=== PATIENT | male | born 1990 | race Caucasian/White ===

== ENCOUNTER 2020-05-29 20:51 | Emergency (ER) | payer SELFPAY ==
[2020-05-29 20:53] VITALS: BP 140/90; PULSE 102; RESP 16; TEMP 37; O2SAT 97; BMI 22.0
--- NOTE | 2020-05-29 21:18 | XR_ITS ---
PROCEDURE: XR CHEST PORTABLE CLINICAL HISTORY: productive cough COMPARISON: No exams were available for comparison FINDINGS: The cardiomediastinal silhouette and pulmonary vascularity are within normal limits. There is a patchy ill-defined pneumonic infiltrate right middle lobe causing partial silhouetting of the right heart border. Otherwise the right lung field is clear and the left lung field is clear. There is no pleural fluid. IMPRESSION: Focal right middle lobe pneumonia Dictated by: Dr. Efren Fong MD 05/30/2020 08:47 Dr. Efren Fong MD in [place] 05/30/2020 08:47
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
[2020-05-29 22:11] VITALS: BP 127/79; PULSE 105; RESP 16; TEMP 37; O2SAT 95
== END 2020-05-29 22:15 ==
PROVIDERS: Emergency Provider Emergency Medicine
DX: J18.9 Pneumonia, unspecified organism (principal)
CPT/HCPCS: 71045; 99283

== ENCOUNTER 2021-01-05 19:31 | Emergency (ER) | payer SELFPAY ==
[2021-01-05 19:21] VITALS: BP 141/70; PULSE 73; RESP 15; TEMP 36.7; O2SAT 95; BMI 27.3
[2021-01-05 19:54] LABS: Benzodiazepines Screen,Urine Positive ng/ml (<200)
[2021-01-05 19:55] LABS: Barbiturates Screen,Urine Negative ng/ml (<200); Cannabinoid Screen,Urine Negative ng/ml (<50)
[2021-01-05 19:56] LABS: Cocaine Screen,Urine Negative ng/ml (<300)
[2021-01-05 19:57] LABS: Methadone Screen,Urine Negative ng/ml (<300); Opiate Screen,Urine Negative ng/ml (<300)
[2021-01-05 19:58] LABS: Phencyclidine Screen,Urine Negative ng/ml (<25)
[2021-01-05 20:30] VITALS: BP 129/71; PULSE 90; RESP 14; TEMP 37.3; O2SAT 97
--- NOTE | 2021-01-05 20:47 | HMH.EDOD ---
ED Disposition Clinical Impression: Poisoning by opiate or related narcotic, Amphetamine abuse CAP (community acquired pneumonia) Qualifiers: Laterality: right Lung location: lower lobe of lung Qualified Code(s): J18.9 - Pneumonia, unspecified organism Disposition: Home, Self-Care Condition on Discharge: Fair Instructions: DI for Drug Overdose in Adults Additional Instructions: pt asked to see rehab and pcp for follow up Prescriptions: clindamycin HCL [Clindamycin HCl] 300 mg PO TID #21 cap Transmission Status: Pending to [facility] levoFLOXacin [Levaquin 500mg tab] 500 mg PO DAILY #7 tab Transmission Status: Pending to [facility] Referrals: Provider,Referral, [Primary Care Provider] - - Critical Care Critical Care Time: No Attestation: On 01/05/21, the high probability of a clinically significant, sudden or life threatening deterioration of the following system(s) required my full and direct attention, intervention and personal management. The time I documented below is in addition to time spent performing reported procedures but includes the following listed in this critical care notation. Medical Decision Making - Medical Records Medical records reviewed: Yes: I reviewed the patient's medical records. - Sebastián Inquiry Pt receiving controlled substance: No Vital Signs: 01/05/21 19:21 01/05/21 20:30 01/05/21 21:30 Temperature 98.1 F 99.1 F Temperature Source Oral Oral Pulse Rate 90 73 Pulse Rate [Right Brachial] 73 Respiratory Rate 15 14 12 Blood Pressure 129/71 141/79 H Blood Pressure [Right Arm] 141/70 H Blood Pressure Mean Blood Pressure Mean [Right Arm] 93 Blood Pressure Source Automatic Cuff Blood Pressure Source [Right Arm] Automatic Cuff Blood Pressure Position Supine Blood Pressure Position [Right Arm] Sitting 02 Sat by Pulse Oximetry 95 97 95 Oxygen Delivery Method Room Air Room Air 01/05/21 22:30 01/05/21 23:30 01/06/21 00:12 Temperature Temperature Source Pulse Rate 70 65 103 H Pulse Rate [Right Brachial] Respiratory Rate 14 16 Blood Pressure 151/70 H 138/59 L 161/81 H Blood Pressure [Right Arm] Blood Pressure Mean 98 Blood Pressure Mean [Right Arm] Blood Pressure Source Automatic Cuff Automatic Cuff Blood Pressure Source [Right Arm] Blood Pressure Position Sitting Supine Blood Pressure Position [Right Arm] 02 Sat by Pulse Oximetry 95 97 95 Oxygen Delivery Method Room Air 01/06/21 00:15 01/06/21 00:30 01/06/21 00:45 Temperature Temperature Source Pulse Rate 108 H 105 H 107 H Pulse Rate [Right Brachial] Respiratory Rate Blood Pressure 167/82 H Blood Pressure [Right Arm] Blood Pressure Mean 107 Blood Pressure Mean [Right Arm] Blood Pressure Source Blood Pressure Source [Right Arm] Blood Pressure Position Blood Pressure Position [Right Arm] 02 Sat by Pulse Oximetry 94 L 93 L 95 Oxygen Delivery Method 01/06/21 01:00 01/06/21 01:15 01/06/21 01:30 Temperature Temperature Source Pulse Rate 108 H 105 H 100 H Pulse Rate [Right Brachial] Respiratory Rate Blood Pressure 161/82 H 126/65 Blood Pressure [Right Arm] Blood Pressure Mean 98 85 Blood Pressure Mean [Right Arm] Blood Pressure Source Blood Pressure Source [Right Arm] Blood Pressure Position Blood Pressure Position [Right Arm] 02 Sat by Pulse Oximetry 96 95 97 Oxygen Delivery Method 01/06/21 02:01 01/06/21 02:30 01/06/21 03:00 Temperature Temperature Source Pulse Rate 107 H 100 H Pulse Rate [Right Brachial] Respiratory Rate Blood Pressure 140/73 153/80 H 139/74 Blood Pressure [Right Arm] Blood Pressure Mean 88 97 105 Blood Pressure Mean [Right Arm] Blood Pressure Source Blood Pressure Source [Right Arm] Blood Pressure Position Blood Pressure Position [Right Arm] 02 Sat by Pulse Oximetry 95 94 L Oxygen Delivery Method
--- NOTE | 2021-01-05 20:48 | XR_ITS ---
PROCEDURE INFORMATION: Exam: XR Chest Exam date and time: 01/05/2021 8:48 PM Age: 30 years old Clinical indication: Other: Vomiting, SOB, found unconscious from overdose; Patient HX: Found in yard from overdose, vomiting, SOB TECHNIQUE: Imaging protocol: XR of the chest. Views: 1 view. COMPARISON: CR XR CHEST PORTABLE 05/29/2020 10:03 PM FINDINGS: Lungs: There are ill-defined opacities in the right lung base. The left lung is clear. Pleural spaces: Unremarkable. No pleural effusion. No pneumothorax. Heart/Mediastinum: Unremarkable. No cardiomegaly. Bones/joints: Unremarkable. No acute displaced fracture. IMPRESSION: Ill-defined opacities in the right lung base could be secondary to aspiration pneumonitis.
[2021-01-05 21:23] LABS: Basophils % 0.3 % (0.1-2.0); Eosinophils # 0.1 K/mm3 (0.0-0.4); Eosinophils % 0.8 % (0.1-12.0); Hematocrit 46.4 % (42.0-52.0); Hemoglobin 15.4 g/dL (14.1-18.0); Lymphocytes # 0.8 K/mm3 (0.7-4.5); Lymphocytes % 7.8 % (10-50); Mean Corpuscular HGB Conc 33.1 g/dL (31.8-35.4); Mean Corpuscular Hemoglobin 28.5 pg (27.0-31.2); Mean Corpuscular Volume 86.1 fl (80-94); Mean Platelet Volume 8.3 fl (7.4-10.4); Monocytes # 0.2 K/mm3 (0.1-1.0); Monocytes % 1.7 % (1.7-9.3); Neutrophils # 9.6 K/mm3 (1.8-7.8); Neutrophils % 89.3 % (37.0-80.0); Platelet Count 482 K/mm3 (142-424); Red Blood Count 5.39 M/mm3 (4.60-6.20); Red Cell Distribution Width 12.7 % (11.5-17.5); White Blood Count 10.7 K/mm3 (4.8-10.8)
[2021-01-05 21:29] LABS: MANUAL DIFFERENTIAL MANUAL DIFFERENTIAL (MANUAL DIFF)
[2021-01-05 21:30] VITALS: BP 141/79; PULSE 73; RESP 12; O2SAT 95
[2021-01-05 21:45] LABS: Lymphocytes % 10 % (10-50); Monocytes % 3 % (2-9); Neutrophils % 85 % (42-76); Platelet Estimate Normal; RBC Morphology Normal; Total Cells Counted 100
[2021-01-05 21:54] LABS: Erythrocyte Sedimentation Rate 16 mm/hr (0-15)
[2021-01-05 22:03] LABS: Alanine Aminotransferase 19 U/L (12-78); Albumin Level 4.6 g/dl (3.5-5.0); Albumin/Globulin Ratio 1.4 (1.1-1.8); Alkaline Phosphatase 95 U/L (38-126); Aspartate Amino Transferase 43 U/L (17-59); Bilirubin,Total 0.6 mg/dl (0.2-1.3); Blood Urea Nitrogen 11 mg/dl (9-20); Calcium 9.8 mg/dl (8.4-10.2); Carbon Dioxide 27 mmol/L (22.0-30.0); Chloride 98 mmol/L (98-107); Creatinine Clearance Estimated 204 mL/min (50-200); Estimated Glomerular Filt Rate 156 ml/min (>60); GFR (African American) 189 ML/MIN (>60); Globulin 3.3 g/dL (1.3-3.2); Glucose 95 mg/dl (74-100); Sodium 135 mmol/L (136-145); Total Protein,Serum 7.9 g/dl (6.3-8.2)
[2021-01-05 22:08] LABS: C-Reactive Protein 21.3 mg/L (0-4)
[2021-01-05 22:22] LABS: Procalcitonin 0.108 ng/mL (0.0-2.0); Troponin I < 0.01 ng/ml (0.00-0.034)
[2021-01-05 22:30] VITALS: BP 151/70; PULSE 70; RESP 14; O2SAT 95
[2021-01-05 23:30] VITALS: BP 138/59; PULSE 65; RESP 16; O2SAT 97
[2021-01-06] VITALS (14 sets, daily range): BP systolic 126–167; BP diastolic 65–94; PULSE 99–110; RESP 16; TEMP 36.6; O2SAT 93–98
[2021-01-11 19:07] LABS: Amphetamine Positive (.); Amphetamines Positive (.); Methamphetamine Positive (.)
[2021-01-12 12:34] LABS: Amphetamine (GC/MS) >3000 ng/mL (Cutoff=500); Methamphetamine (GC/MS) >3000 ng/mL (Cutoff=500)
== END 2021-01-06 05:07 | disposition home or self-care (01) ==
PROVIDERS: Emergency Medicine; Emergency Provider Emergency Medicine
DX: T40.1X1A Poisoning by heroin, accidental (unintentional), initial encounter (principal); R55 Syncope and collapse; Y92.89 Other specified places as the place of occurrence of the external cause; J18.9 Pneumonia, unspecified organism; F15.10 Other stimulant abuse, uncomplicated
CPT/HCPCS: 71045; 80053; 80305; 80324; 83605; 84145; 84484; 85007; 85025; 85651; 86140; 87040; 96372; 99283

== ENCOUNTER 2021-12-27 23:09 | Emergency (ER) | payer MEDICAID, SELFPAY ==
[2021-12-27 23:20] VITALS: BP 122/72; PULSE 103; RESP 18; TEMP 36.9; O2SAT 98; BMI 27.3
--- NOTE | 2021-12-28 00:21 | HMH.EDMCLR ---
ED Disposition Clinical Impression: Medical clearance for incarceration Cellulitis Qualifiers: Site of cellulitis: trunk Site of cellulitis of trunk: back Qualified Code(s): L03.312 - Cellulitis of back [any part except buttock] Disposition: Home, Self-Care Condition on Discharge: Good Instructions: DI for Substance Use Disorder, DI for Methicillin-Resistant Staph Infection (MRSA) Additional Instructions: keel clean and covered and use meds and see pcp for follow up Prescriptions: clindamycin HCL [Clindamycin HCl] 300 mg PO TID #30 cap Transmission Status: Pending to [facility] Minocycline HCl [Minocycline HCl 100mg Tab*] 100 mg PO BID #20 tab Transmission Status: Pending to [facility] Referrals: Provider,Referral, MD [Primary Care Provider] - - Critical Care Critical Care Time: No Attestation: On 12/27/21, the high probability of a clinically significant, sudden or life threatening deterioration of the following system(s) required my full and direct attention, intervention and personal management. The time I documented below is in addition to time spent performing reported procedures but includes the following listed in this critical care notation. Medical Decision Making - Medical Records Medical records reviewed: Yes: I reviewed the patient's medical records. - Sebastián Inquiry Pt receiving controlled substance: No Vital Signs: 12/27/21 23:20 Temperature 98.4 F Temperature Source Oral Pulse Rate [Left Brachial] 103 H Respiratory Rate 18 Blood Pressure [Left Arm] 122/72 Blood Pressure Mean [Left Arm] 88 Blood Pressure Source [Left Arm] Automatic Cuff Blood Pressure Position [Left Arm] Sitting 02 Sat by Pulse Oximetry 98 Oxygen Delivery Method Room Air Orders (Tests/Meds): ED MEDICATIONS Generic Name Dose Route Start Last Admin Trade Name Freq PRN Reason Stop Dose Admin Mupirocin 1 gm 12/28/21 00:15 12/28/21 00:17 Mupirocin 2% Ointment 22gm Tube TP 01/27/22 00:14 1 applic BID KIRILL Administration Discontinued Medications Generic Name Dose Route Start Last Admin Trade Name Freq PRN Reason Stop Dose Admin Clindamycin HCl 300 mg 12/28/21 00:11 12/28/21 00:17 Clindamycin 150mg Capsule PO 12/28/21 00:12 300 mg ONCE ONE Administration ORDERS Category Date Time Status Wound Culture and Gram Stain Stat Micro 12/28/21 00:11 Ordered Medical Decision Narrative: stable for detention at this time - has mrsa cellulitis - will give treatment at this time Medical Clearance HPI - General Chief complaint: Medical Clearance Stated complaint: Medical Clearance Time Seen by Provider: 12/28/21 00:21 Mode of Arrival: Ambulatory Source of Information: Patient, Medical Record Limitations: No Limitations Description of Symptoms (Recalled from ER Triage Doc. by RN): patient brought in by police for medical clearance. Patient admits to heroin use at 5 pm. Report a red raised area to right lower back x 1 week. Return draining at interval. - History of Present Illness HPI Narrative: has area on back consistent with mrsa- no fever or rash - MD complaint: medical clearance requested Onset (ago): day(s) Place: home Traumatic Symptoms: denies traumatic injury Associated Symptoms: other (rash on back ) Treatments Prior to Arrival: none Home medications: Previous Rx's Medication Instructions Recorded Minocycline HCl [Minocycline HCl 100 mg PO BID #20 tab 12/28/21 100mg Tab*] clindamycin HCL [Clindamycin HCl] 300 mg PO TID #30 cap 12/28/21 Allergies/Adverse reactions: Allergies Allergy/AdvReac Type Severity Reaction Status Date / Time No Known Allergies Allergy Verified 05/29/20 22:06 [facility] History - Hepatitis A Screen Attestation statement:: This patient has been screened for Hepatitis A risk factors. I have reviewed the patient's past medical history: Yes ROS Obtained: Yes All systems reviewed & no additional complaints
[2021-12-28 00:32] VITALS: BP 120/68; PULSE 98; RESP 18; TEMP 36.8; O2SAT 99
== END 2021-12-28 00:34 | disposition home or self-care (01) ==
PROVIDERS: Emergency Provider Emergency Medicine
DX: L03.312 Cellulitis of back [any part except buttock and flank] (principal); F11.10 Opioid abuse, uncomplicated
CPT/HCPCS: 87070; 87077; 87186; 87205; 99283

== ENCOUNTER 2022-01-13 23:22 | Emergency (ER) | payer MEDICAID, SELFPAY ==
[2022-01-13 23:23] VITALS: BP 142/98; PULSE 121; RESP 22; TEMP 37.5; O2SAT 99; BMI 22.1
[2022-01-14] VITALS (11 sets, daily range): BP systolic 104–124; BP diastolic 50–69; PULSE 80–97; RESP 16–18; TEMP 36.7; O2SAT 94–99
[2022-01-14 00:05] LABS: Basophils # 0.4 K/mm3 (0-0.2); Basophils % 3.2 % (0.1-2.0); Eosinophils # 0.3 K/mm3 (0.0-0.4); Eosinophils % 2.8 % (0.1-12.0); Hematocrit 39.8 % (42.0-52.0); Hemoglobin 13.4 g/dL (14.1-18.0); Lymphocytes # 3.1 K/mm3 (0.7-4.5); Lymphocytes % 28.5 % (10-50); Mean Corpuscular HGB Conc 33.7 g/dL (31.8-35.4); Mean Corpuscular Hemoglobin 28.5 pg (27.0-31.2); Mean Corpuscular Volume 84.7 fl (80-94); Mean Platelet Volume 7.5 fl (7.4-10.4); Monocytes # 0.8 K/mm3 (0.1-1.0); Monocytes % 7.2 % (1.7-9.3); Neutrophils # 6.3 K/mm3 (1.8-7.8); Neutrophils % 58.3 % (37.0-80.0); Platelet Count 406 K/mm3 (142-424); Red Cell Distribution Width 13.8 % (11.5-17.5); White Blood Count 10.9 K/mm3 (4.8-10.8)
[2022-01-14 00:11] LABS: Alanine Aminotransferase 35 U/L (12-78); Albumin Level 4.1 g/dl (3.5-5.0); Albumin/Globulin Ratio 1.6 (1.1-1.8); Alkaline Phosphatase 88 U/L (38-126); Aspartate Amino Transferase 47 U/L (17-59); Bilirubin,Total 0.4 mg/dl (0.2-1.3); Blood Urea Nitrogen 19 mg/dl (9-20); Carbon Dioxide 27 mmol/L (22.0-30.0); Chloride 104 mmol/L (98-107); Creatinine Clearance Estimated 126 mL/min (50-200); Estimated Glomerular Filt Rate 111 ml/min (>60); GFR (African American) 135 ML/MIN (>60); Globulin 2.5 g/dL (1.3-3.2); Glucose 102 mg/dl (74-100); Sodium 138 mmol/L (136-145); Total Protein,Serum 6.6 g/dl (6.3-8.2)
[2022-01-14 00:15] LABS: C-Reactive Protein 32.2 mg/L (0-4)
[2022-01-14 00:27] LABS: Lactic Acid 1.1 mmol/L (0.7-2.1)
[2022-01-14 00:27] LABS: Microscopic, Urine URINE MICROSCOPIC (MICROSCOPIC)
[2022-01-14 00:29] LABS: Procalcitonin 0.275 ng/mL (0.0-2.0)
[2022-01-14 00:35] LABS: Appearance,Urine CLEAR (Clear); Bilirubin,Urine Negative (Negative); Blood, Urine Negative (Negative); Color,Urine YELLOW (Yellow); Glucose,Urine (UA) Negative (Negative); Ketones,Urine Negative (Negative); Leukocyte Esterase,Urine Negative (Negative); Nitrate,Urine Negative (Negative); PH,Urine 5.5 (5.0-8.5); Protein,Urine Negative (Negative); Specific Gravity, Urine >= 1.030 (1.005-1.030); Urobilinogen,Urine 0.2 EU/dl (0.2)
[2022-01-14 00:36] LABS: Erythrocyte Sedimentation Rate 18 mm/hr (0-15)
[2022-01-14 00:43] LABS: Bacteria,Urine Trace /lpf; Squamous Epithelial Cell,Urine Occasional #/hpf (0-5)
[2022-01-14 00:46] LABS: Benzodiazepines Screen,Urine Negative ng/ml (<200)
[2022-01-14 00:47] LABS: Barbiturates Screen,Urine Negative ng/ml (<200)
[2022-01-14 00:48] LABS: Cannabinoid Screen,Urine Negative ng/ml (<50); Cocaine Screen,Urine Negative ng/ml (<300)
[2022-01-14 00:49] LABS: Methadone Screen,Urine Negative ng/ml (<300)
[2022-01-14 00:50] LABS: Opiate Screen,Urine Negative ng/ml (<300); Phencyclidine Screen,Urine Negative ng/ml (<25)
--- NOTE | 2022-01-14 01:36 | HMH.EDANX ---
ED Disposition Clinical Impression: Amphetamine abuse Disposition: Home, Self-Care Condition on Discharge: Good Instructions: DI for Substance Use Disorder Additional Instructions: call pcp for follow up and consider rehab Referrals: Provider,Referral, [Primary Care Provider] - - Critical Care Critical Care Time: No Attestation: On 01/13/22, the high probability of a clinically significant, sudden or life threatening deterioration of the following system(s) required my full and direct attention, intervention and personal management. The time I documented below is in addition to time spent performing reported procedures but includes the following listed in this critical care notation. Medical Decision Making - Medical Records Medical records reviewed: Yes: I reviewed the patient's medical records. - Sebastián Inquiry Pt receiving controlled substance: No Vital Signs: 01/13/22 23:23 01/14/22 00:54 01/14/22 01:00 Temperature 99.5 F Temperature Source Oral Pulse Rate 97 H 96 H Pulse Rate [Right] 121 H Respiratory Rate 22 Blood Pressure 104/50 L 112/59 L Blood Pressure [Right Arm] 142/98 H Blood Pressure Mean 63 71 Blood Pressure Mean [Right Arm] 112 Blood Pressure Source Blood Pressure Position 02 Sat by Pulse Oximetry 99 94 L 95 Oxygen Delivery Method 01/14/22 01:30 01/14/22 02:00 01/14/22 02:30 Temperature Temperature Source Pulse Rate 90 89 87 Pulse Rate [Right] Respiratory Rate 16 16 Blood Pressure 124/57 L 117/62 111/61 Blood Pressure [Right Arm] Blood Pressure Mean 72 82 74 Blood Pressure Mean [Right Arm] Blood Pressure Source Blood Pressure Position 02 Sat by Pulse Oximetry 96 98 98 Oxygen Delivery Method 01/14/22 03:00 01/14/22 03:30 01/14/22 04:00 Temperature Temperature Source Pulse Rate 84 90 85 Pulse Rate [Right] Respiratory Rate Blood Pressure 108/63 L 113/63 115/69 Blood Pressure [Right Arm] Blood Pressure Mean 82 78 79 Blood Pressure Mean [Right Arm] Blood Pressure Source Blood Pressure Position 02 Sat by Pulse Oximetry 98 97 98 Oxygen Delivery Method 01/14/22 04:30 01/14/22 05:00 01/14/22 06:45 Temperature 98.1 F Temperature Source Oral Pulse Rate 82 80 80 Pulse Rate [Right] Respiratory Rate 18 Blood Pressure 109/56 L 104/63 L 104/63 L Blood Pressure [Right Arm] Blood Pressure Mean 73 74 Blood Pressure Mean [Right Arm] Blood Pressure Source Automatic Cuff Blood Pressure Position Sitting 02 Sat by Pulse Oximetry 99 99 Oxygen Delivery Method Room Air - Lab Data Lab results reviewed: Yes: I reviewed the patient's lab results. Lab Results 01/13/22 23:55: WBC 10.9 H, RBC 4.70, Hgb 13.4 L, Hct 39.8 L, MCV 84.7, MCH 28.5, MCHC 33.7, RDW 13.8, Plt Count 406, MPV 7.5, Neut % (Auto) 58.3, Lymph % (Auto) 28.5, Barren % (Auto) 7.2, Eos % (Auto) 2.8, Baso % (Auto) 3.2 H, Neut # (Auto) 6.3, Lymph # (Auto) 3.1, Barren # (Auto) 0.8, Eos # (Auto) 0.3, Baso # (Auto) 0.4 H, ESR 18 H 01/13/22 23:55: Sodium 138, Potassium 4.0, Chloride 104, Carbon Dioxide 27, Anion Gap 11.0, BUN 19, Creatinine 0.80, Estimated Creat Clear 126, Estimated GFR 111, Est GFR ( Amer) 135, Glucose 102 H, Calcium 9.0, Total Bilirubin 0.4, AST 47, ALT 35, Alkaline Phosphatase 88, C-Reactive Protein 32.2 H, Total Protein 6.6, Albumin 4.1, Globulin 2.5, Albumin/Globulin Ratio 1.6, Procalcitonin 0.275 01/14/22 00:00: Lactate 1.1 01/14/22 00:22: Urine Color Yellow, Urine Appearance Clear, Urine pH 5.5, Ur Specific [place] >= 1.030, Urine Protein Negative, Urine Glucose (UA) Negative, Urine Ketones Negative, Urine Blood Negative, Urine Nitrate Negative, Urine Bilirubin Negative, Urine Urobilinogen 0.2, Ur Leukocyte Esterase Negative, Urine RBC None, Urine WBC 3-5, Ur Squamous Epith Cells Occasional, Urine Bacteria Trace 01/14/22 00:22: Urine Opiates Screen Negative, Urine Methadone Screen Negative, Ur Barbituates S
--- NOTE | 2022-01-14 02:25 | PC.NURSE ---
Pt given pillow and blanket for comfort. No new needs.
--- NOTE | 2022-01-14 04:10 | PC.NURSE ---
Pt sleeping. Visitor at bedside.
--- NOTE | 2022-01-14 06:26 | PC.NURSE ---
Pt continues to sleep. Visitor at bedside.
[2022-01-28 06:25] LABS: Amphetamine Positive (.); Amphetamine (GC/MS) >3000 ng/mL (Cutoff=500); Amphetamines Positive (.); Methamphetamine Positive (.); Methamphetamine (GC/MS) >3000 ng/mL (Cutoff=500)
== END 2022-01-14 07:40 | disposition home or self-care (01) ==
PROVIDERS: Emergency Provider Emergency Medicine
DX: F15.10 Other stimulant abuse, uncomplicated (principal); R25.2 Cramp and spasm
CPT/HCPCS: 80053; 80305; 80324; 81001; 83605; 84145; 85025; 85651; 86140; 96361; 96374; 96375; 99284